=== PATIENT | female | born 1945 | race Caucasian/White ===

== ENCOUNTER 2018-11-16 07:15 | Emergency (ER) | payer BC, MEDICARE ==
[2018-11-16] MEDS ORDERED: Morphine VIAL* 4 MG/ML VIAL (1 ml vial) IV ONE (07:28)
--- NOTE | 2018-11-16 07:33 | ED ---
Lower Extremity - HPI Summary HPI Summary: patient is a 73-year-old female presenting to the ED after trip and fall this morning. She endorses right ankle deformity and immediately following. She's never injured this ankle before. Currently rating pain 8/10 constant throbbing. No ecchymosis to the area. Denies any numbness or tingling. Patient is not on blood thinners. Last by mouth intake was last evening. - History of Current Complaint Chief Complaint: EDExtremityLower Stated Complaint: FALL DOWN STAIRS THINKS SHE BROKE HER ANKLE PER PT Time Seen by Provider: 11/16/18 07:24 Hx Obtained From: Patient Mechanism Of Injury: Twisted Onset of Pain: Immediate Onset/Duration: Hours Severity Initially: Moderate Severity Currently: Moderate Pain Intensity: 4 Pain Scale Used: 0-10 Numeric Timing: Constant Location: Is Discrete @ - right ankle deformity Character Of Pain: Aching Associated Signs And Symptoms: Positive: Bruising. Negative: Swelling, Redness , Fever Aggravating Factor(s): Standing, Ambulation Alleviating Factor(s): Rest Able to Bear Weight: No - Allergies/Home Medications Allergies/Adverse Reactions: Allergies Allergy/AdvReac Type Severity Reaction Status Date / Time No Known Allergies Allergy Verified 11/16/18 07:20 Home Medications: Home Medications Atenolol 25 mg PO DAILY 11/16/18 [History Confirmed 11/16/18] Atorvastatin* [Lipitor*] 10 mg PO DAILY 11/16/18 [History Confirmed 11/16/18] Calcium Carbonate/Vitamin D3 [Calcium 600-Vit D3 800 Caplet] 1 each PO DAILY 03/30 [History Confirmed 11/16/18] Clobetasol 0.05% OINT* 1 applic TOPICAL DAILY 11/16/18 [History Confirmed ] Dulaglutide (NF) [Trulicity (NF)] 1.5 ml INJ WEEKLY 11/16/18 [History Confirmed 11/16/18] Ketoconazole 1 applic TOPICAL DAILY 11/16/18 [History Confirmed 11/16/18] Lisinopril/HCTZ 10/12.5(NF) 10 mg PO DAILY 11/16/18 [History Confirmed 11/16/18] Metformin HCl 1,000 mg PO BID 11/16/18 [History Confirmed 11/16/18] Multivitamin [Once Daily] 1 each PO DAILY 11/16/18 [History Confirmed 11/16/18] NIFEdipine [Nifedipine ER] 90 mg PO DAILY 11/16/18 [History Confirmed 11/16/18] Olopatadine HCl 1 drop BOTH EYES BID 11/16/18 [History Confirmed 11/16/18] Sertraline* [Zoloft*] 100 mg PO BEDTIME 11/16/18 [History Confirmed 11/16/18] PMH/Surg Hx/FS Hx/Imm Hx Previously Healthy: Yes - Immunization History Hx Pertussis Vaccination: No Immunizations Up to Date: Yes Infectious Disease History: No Infectious Disease History: Denies: Traveled Outside the [place] in Last 30 Days - Social History Occupation: Unemployed Lives: With Family Alcohol Use: None Hx Substance Use: No Substance Use Type: Reports: None Hx Tobacco Use: No Smoking Status (MU): Never Smoked Tobacco Review of Systems Constitutional: Negative Negative: Fever, Chills, Fatigue, Skin Diaphoresis Negative: Epistaxis, Dental Pain Negative: Palpitations, Chest Pain Negative: Shortness Of Breath, Cough Genitourinary: Negative Positive: no symptoms reported, see HPI Positive: Arthralgia - right ankle injury/deformity noted. Negative: Myalgia Negative: Rash, Bruising Neurological: Negative All Other Systems Reviewed And Are Negative: Yes Physical Exam Triage Information Reviewed: Yes Vital Signs On Initial Exam: Initial Vitals Temp Pulse Resp BP Pulse Ox 97.1 F 64 19 163/87 94 11/16/18 07:15 11/16/18 07:15 11/16/18 07:15 11/16/18 07:15 11/16/18 07:15 Vital Signs Reviewed: Yes Appearance: Positive: Well-Appearing, Well-Nourished Skin: Positive: Warm Head/Face: Positive: Normal Head/Face Inspection Eyes: Positive: EOMI, MELVIN, Conjunctiva Clear Neck: Positive: No Lymphadenopathy Respiratory/Lung Sounds: Positive: Clear to Auscultation, Breath Sounds Present Cardiovascular: Positive: RRR Musculoskeletal: Positive: Pain @ - right ankle deformity Neurological: Positive: Sensory/Motor Intact, Alert, Oriented to Person Place, Time Psychiatric: Positive: Normal, Affect/Mood Appropriate AVPU Assessment: Alert Diagnostics - Vital Signs Vital Signs Temp Pulse Resp BP Pulse Ox 11/16/18 07:15 97.1 F 64 19 163/87 94 - Laboratory Lab Statement: Any lab studies that have been ordered have been reviewed, and results considered in the medical decision making process. Lower Extremity Course/Dx - Course Course Of Treatment: During the patient's course of treatment, she is given 4 mg IV morphine. On physical examination, X-ray obtained which shows: FINDINGS : There is dislocation of the tibia anterior and medial relative to the talus. There is a transverse fracture of the distal diaphysis of the fibula. The distal fragment. is angulated posterior relative to the proximal fragment. There also appears to be a small. fracture fragment of the tip of the medial malleolus which is displaced. In addition there. appears to be a fracture of the posterior malleolus not well defined. There is diffuse. widening of the ankle mortise. IMPRESSION: FRACTURE DISLOCATION OF THE ANKLE DESCRIBED. Discussed case with Dr. Dunne. Placed 10 cc Marcaine into the joint space just medial to the anterior tibialis. With knee flexed to 90, distractive downward motion and reduced dislocation. Patient tolerated well. Posterior mold splint applied. Discussed with patient not to bear weight until follow up. Script given for knee walker. Reduction views show: IMPRESSION: Lateral subluxation talus. Again, discussed case with Dr. Dunne. Appears reduction has been made, however continues to be laterally subluxed. Provider called orthopedic clinic and secured an appointment with Dr. Patel at 1:45 PM tomorrow. Patient is given crutches at this time and is OK for discharge. - Diagnoses Provider Diagnoses: Closed fibular fracture, Subluxation of tarsal joint of foot Discharge - Sign-Out/Discharge Documenting (check all that apply): Patient Departure Patient Received Moderate/Deep Sedation with Procedure: No - Discharge Plan Condition: Stable Disposition: HOME Patient Education Materials: Ankle Fracture (ED), Ankle Dislocation (ED) Referrals: Delano Carter MD [Medical Doctor] - Rose Stewart MD [Primary Care Provider] - Additional Instructions: You have an appt tomorrow with Dr. Tsai at 1:45pm Do not bear weight Use crutches You will need to obtain a scooter as well for group home use Ibuprofen 600mg three times daily - Billing Disposition and Condition Condition: STABLE Disposition: Home
[2018-11-16] MEDS ORDERED: traMADol TAB* 50 MG PO ONE (08:01)
[2018-11-16] MEDS ORDERED: HYDROmorphone INJ1* 1 MG/ML SYRINGE IM ONE (09:32)
[2018-11-16 11:45] VITALS: BP 98/75
== END 2018-11-16 11:45 | disposition home or self-care (01) ==
LOC: ED 07:15
DX: S82.401A Unspecified fracture of shaft of right fibula, initial encounter for closed fracture (principal); S93.314A Dislocation of tarsal joint of right foot, initial encounter; W01.0XXA Fall on same level from slipping, tripping and stumbling without subsequent striking against object, initial encounter; Y92.9 Unspecified place or not applicable
CPT/HCPCS: 96372; 96374; 99282; A9270-GY; J1170